=== PATIENT | female | born 1980 | race Caucasian/White ===

== ENCOUNTER 2017-12-17 16:57 | Emergency (ER) | payer MEDICARE ==
[2017-12-17 17:37] LABS: ALBUMIN/GLOBULIN RATIO 0.8 (1.0-2.2); BILIRUBIN,TOTAL 0.5 mg/dL (0.2-1.0); CREATININE 0.8 mg/dL (0.4-1.0); TOTAL PROTEIN 9.1 g/dL (6.7-8.2)
[2017-12-17 17:48] LABS: BASOPHILS % (AUTO) 0.3 %; EOSINOPHILS % (AUTO) 0.2 %; HGB - HEMOGLOBIN 11.8 g/dL (12.0-16.0); LYMPHOCYTES % (AUTO) 14.2 %; MEAN CORPUSCULAR HEMOGLOBIN 26.3 pg (27.0-31.0); MEAN CORPUSCULAR HGB CONC 33.1 g/dL (32.0-36.0); MEAN CORPUSCULAR VOLUME 79.6 fL (81.0-99.0); MEAN PLATELET VOLUME 9.4 fL (7.9-10.8); MONOCYTES # (AUTO) 0.6 10^3/uL (0.0-1.0); NEUTROPHILS # (AUTO) 5.7 10^3/uL (1.5-6.6); NEUTROPHILS % (AUTO) 77.3 %; PLT - PLATELET COUNT 263 10^3/uL (130-450); RED CELL DISTRIBUTION WIDTH 14.1 % (12.0-15.0); WHITE BLOOD COUNT 7.4 x10^3/uL (4.8-10.8)
[2017-12-17 18:04] LABS: BILIRUBIN,URINE NEGATIVE (NEGATIVE); GLUCOSE, URINE (UA) NEGATIVE (NEGATIVE); KETONES,URINE (UA) NEGATIVE (NEGATIVE); LEUKOCYTE ESTERASE, URINE SMALL (NEGATIVE); NITRITE,URINE NEGATIVE (NEGATIVE); OCCULT BLOOD,URINE LARGE (NEGATIVE); PH,URINE 5.5 PH (5.0-7.5); PROTEIN,URINE 30 mg/dL (NEGATIVE); UROBILINOGEN,URINE 0.2 (NORMAL) E.U./dL (NORMAL)
[2017-12-17 18:12] LABS: CLARITY,URINE HAZY (CLEAR); HCG UR QUAL NEGATIVE
[2017-12-17 18:22] LABS: BACTERIA,URINE Few /HPF (None Seen); RBC,URINE 0-5 /HPF (0-5); SQUAMOUS EPITHELIAL CELL,UR FEW Squamous (<= Few); WBC CLUMPS,URINE PRESENT
--- NOTE | 2017-12-17 18:38 | ED Physician Documentation ---
PD HPI ABD PAIN - Stated complaint Stated Complaint: CHILLS,SIDE PX - Chief complaint Chief Complaint: Abd Pain - History obtained from History obtained from: Patient - History of Present Illness Timing - onset: How many days ago (few) Timing - duration: Days (few) Timing - details: Gradual onset (had recent UTi symptoms and improved some but then feverish, nauseated and pain to flank areas since yesterday.) Quality: Cramping, Aching Location: Suprapubic Radiation: Left flank, Right flank Improved by: No: Eating, Position Worsened by: No: Eating, Position, Palpation Associated symptoms: Fever, Nausea, Dysuria, Loss of appetite. No: Vomiting, Diarrhea, Vaginal bleeding, Vaginal dc Similar symptoms before: Has not had sx before Recently seen: Not recently seen Review of Systems Constitutional: reports: Fever, Chills, Myalgias Nose: denies: Rhinorrhea / runny nose, Congestion Throat: denies: Sore throat Cardiac: denies: Chest pain / pressure, Palpitations Respiratory: denies: Dyspnea, Cough GI: reports: Abdominal Pain, Nausea. denies: Vomiting, Diarrhea : reports: Dysuria, Frequency. denies: Discharge Skin: denies: Rash PD PAST MEDICAL HISTORY - Past Medical History Cardiovascular: None Respiratory: None Endocrine/Autoimmune: None : None - Present Medications Home Medications: Ambulatory Orders Medication Instructions Recorded Confirmed Ondansetron HCl [Zofran] 4 mg PO Q6H PRN #15 tablet 12/17/17 Phenazopyridine [Pyridium] 200 mg PO TID PRN #15 tablet 12/17/17 Sulfamethox/Trimeth 800/160 1 each PO BID #14 tablet 12/17/17 [Bactrim Ds 800/160] - Allergies Allergies/Adverse Reactions: Allergies Allergy/AdvReac Type Severity Reaction Status Date / Time cephalexin Allergy Unknown Verified 12/17/17 18:52 hydrocodone Allergy Hives Verified 12/17/17 17:06 iodine Allergy Hives Verified 12/17/17 17:06 PD ED PE NORMAL - Vitals Vital signs reviewed: Yes - General General: Alert and oriented X 3, No acute distress, Well developed/nourished - HEENT HEENT: Pharynx benign - Neck Neck: Supple, no meningeal sign, No adenopathy - Cardiac Cardiac: RRR, No murmur - Respiratory Respiratory: Clear bilaterally - Abdomen Abdomen: Normal bowel sounds, Soft, Non distended, No organomegaly, Other (some tender suprapubic area) - Female Female : Deferred - Rectal Rectal: Deferred - Back Back: No: No CVA TTP (mild on right) - Derm Derm: Normal color, Warm and dry - Neuro Neuro: Alert and oriented X 3, No motor deficit, Normal speech Results - Vitals Vitals: Oxygen O2 Source Room air - Labs Labs: Microbiology 12/17/17 17:30 Urine Culture - Final Urine,Clean Catch Escherichia Coli Laboratory Tests 12/17/17 12/17/17 12/17/17 17:21 17:21 17:30 WBC 7.4 RBC 4.50 Hgb 11.8 L Hct 35.8 L MCV 79.6 L MCH 26.3 L MCHC 33.1 RDW 14.1 Plt Count 263 MPV 9.4 Neut # 5.7 Lymph # 1.0 L [place] # 0.6 Eos # 0.0 Baso # 0.0 Absolute Nucleated RBC 0.00 Nucleated RBC % 0.0 Sodium 134 L Potassium 2.9 L Chloride 100 L Carbon Dioxide 25 Anion Gap 9.0 BUN 9 Creatinine 0.8 Estimated GFR (MDRD) 81 L Glucose 113 H Calcium 9.0 Total Bilirubin 0.5 AST 26 ALT 38 Alkaline Phosphatase 92 Total Protein 9.1 H Albumin 4.0 Globulin 5.1 H Albumin/Globulin Ratio 0.8 L Lipase 12 L Urine Color YELLOW Urine Clarity HAZY Urine pH 5.5 Ur Specific [place] 1.020 Urine Protein 30 H Urine Glucose (UA) NEGATIVE Urine Ketones NEGATIVE Urine Occult Blood LARGE H Urine Nitrite NEGATIVE Urine Bilirubin NEGATIVE Urine Urobilinogen 0.2 (NORMAL) Ur Leukocyte Esterase SMALL H Urine RBC 0-5 Urine WBC >25 H Urine WBC Clumps PRESENT Ur Squamous Epith Cells FEW Squamous Urine Bacteria Few Ur Microscopic Review INDICATED Urine Culture Comments INDICATED Urine HCG, Qual NEGATIVE PD MEDICAL DECISION MAKING - ED course Complexity details: reviewed results, considered differential (she felt okay trying PO meds and oral challenge and deferring IV. ), d/w patient Departure - Departure Disposition: Home, Self Care Clinical Impression: Pyelonephritis Condition: Stable Record reviewed to determine appropriate education?: Yes Instructions: ED Kidney Infec Female Prescriptions: Ondansetron HCl [Zofran] 4 mg PO Q6H PRN #15 tablet PRN Reason: Nausea / Vomiting Phenazopyridine [Pyridium] 200 mg PO TID PRN #15 tablet PRN Reason: Pain Sulfamethox/Trimeth 800/160 [Bactrim Ds 800/160] 1 each PO BID #14 tablet Comments: Drink lots of fluids. Tylenol or ibuprofen if needed for pains. Bactrim antibiotic twice daily for 8 more days. Use ondansetron if needed for nausea. Phenazopyridine can be used if you have discomfort of urination. Recheck if not improving over the next couple of days return sooner if worse. Discharge Date/Time: 12/17/17 19:54
[2017-12-17] MEDS ORDERED: ONDANSETRON ODT 4 MG TABLET TL STA (18:50)
[2017-12-17] MEDS ORDERED: POTASSIUM BICARB 25 MEQ TABLET PO STA (18:52)
[2017-12-17] MEDS ORDERED: SULFAMETH/TRIMETH DS 800/160 MG TABLET PO STA (18:52)
[2017-12-17] MEDS ORDERED: traMADol 50 MG TABLET PO STA (18:52)
[2017-12-17] MEDS ORDERED: ACETAMINOPHEN 325 MG TABLET PO STA (18:53)
[2017-12-17] MEDS ORDERED: SULFAM/TRIM 800/160 Prepack 2 PO ONE (19:34)
[2017-12-17] MEDS ORDERED: ONDANSETRON ODT 4 MG Prepack 2 TL PRN (19:34)
[2017-12-17 19:45] VITALS: BP 128/94
== END 2017-12-17 19:54 | disposition home or self-care (01) ==
LOC: ED 16:57
DX: N12 Tubulo-interstitial nephritis, not specified as acute or chronic (principal)
CPT/HCPCS: 36415; 80053; 81001; 81025; 83690; 85025; 87086; 87181; 99283; A9270; Q0162; 81003

== ENCOUNTER 2018-05-03 11:48 | Emergency (ER) | payer MEDICARE ==
--- NOTE | 2018-05-03 13:02 | XRAY Report ---
Procedure Date: 05/03/2018 Accession Number: [id number] / [id number] Procedure: XR - Chest 1 View X-Ray CPT Code: 06164 FULL RESULT: EXAM: CHEST RADIOGRAPHY EXAM DATE: 05/03/2018 12:56 PM. CLINICAL HISTORY: Chest pain. COMPARISON: None. TECHNIQUE: 1 view. FINDINGS: Lungs/Pleura: No focal opacities evident. No pleural effusion. No pneumothorax. Mediastinum: Within exam limitations, the cardiomediastinal contour is normal. Other: None. IMPRESSION: Negative for an acute cardiopulmonary abnormality. RADIA
--- NOTE | 2018-05-03 13:07 | ED Physician Documentation ---
PD HPI CHEST PAIN - Stated complaint Stated Complaint: CP/HERNIA PX - Chief complaint Chief Complaint: Cardiac - History obtained from History obtained from: Patient - History of Present Illness Timing - onset: Today Timing - onset during: Light activity Timing - duration: Hours Timing - details: Abrupt onset, Still present Quality: Pressure, Sharp, Pain Location: Substernal Radiation: Abdominal. No: Jaw, Neck, Back Improved by: Rest Worsened by: Inspiration Associated symptoms: Diaphoresis. 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 The pain is non-radiating did cause some diaphoresis and is 8/10. She denies soa or light headedness. She has not had this previously. She has had a ventral hernia since a gallbladder removal several months ago. She has an 8 month old son that has been fussy lately with some constipation and she has been carrying him more than usual. She has been able to get the hernia to reduce but still has the chest pain. Review of Systems Constitutional: denies: Fever Eyes: denies: Decreased vision Ears: denies: Ear pain Nose: denies: Rhinorrhea / runny nose, Congestion Throat: denies: Sore throat Cardiac: reports: Chest pain / pressure. denies: Palpitations, Pedal edema, Calf pain Respiratory: denies: Dyspnea, Cough, Wheezing GI: reports: Abdominal Pain, Nausea. 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 : None Psych: None Musculoskeletal: None Derm: None - Past Surgical History Past Surgical History: Yes General: Cholecystectomy Ortho: Other /FITNESS CENTER ATTENDANT: section, Tubal ligation - Allergies Allergies/Adverse Reactions: Allergies Allergy/AdvReac Type Severity Reaction Status Date / Time cephalexin Allergy Unknown Verified 05/03/18 12:11 hydrocodone Allergy Hives Verified 05/03/18 12:11 iodine Allergy Hives Verified 05/03/18 12:11 - Social History Does the pt smoke?: No Smoking Status: Never smoker Does the pt drink ETOH?: No Does the pt have substance abuse?: No - Immunizations Immunizations are current?: Yes - POLST Patient has POLST: No PD ED PE NORMAL - Vitals Vital signs reviewed: Yes (hypertensive ) - General General: Alert and oriented X 3, No acute distress, Well developed/nourished - HEENT HEENT: Atraumatic, PERRL, EOMI - Neck Neck: Supple, no meningeal sign - Cardiac Cardiac: RRR, No murmur - Respiratory Respiratory: No respiratory distress, Clear bilaterally, Other (There is no chest wall tenderness to palpation ) - Abdomen Abdomen: Soft, Other (There is some mild epigastric tenderness and no defect is palpated for the ventral hernia. Pressure over the upper abdomen causes the pain the patient is having in her chest to be worse ) - Back Back: No CVA TTP, No spinal TTP - Derm Derm: Normal color, Warm and dry, No rash - Extremities Extremities: No deformity, No edema - Neuro Neuro: Alert and oriented X 3, ld teacher 2-12 intact, No motor deficit, No sensory deficit, Normal speech Eye Opening: Spontaneous Motor: Obeys Commands Verbal: Oriented GCS Score: 15 - Psych Psych: Normal mood, Normal affect Results - Vitals Vitals: Vital Signs - 24 hr 05/03/18 05/03/18 12:07 13:33 Temperature 36.3 C L Heart Rate 95 83 Respiratory 10 L 18 Rate Blood Pressure 137/93 H 112/85 H O2 Saturation 95 95 Oxygen O2 Source Room air - EKG (time done) 1202 Rate: Rate (enter#) (99) Rhythm: NSR Ischemia: Non specific changes Computer interpretation: Agree with computer - Labs Labs: Laboratory Tests 05/03/18 05/03/18 05/03/18 12:52 13:12 13:12 WBC 6.0 RBC 4.83 Hgb 13.0 Hct 38.7 MCV 80.3 L MCH 26.9 L MCHC 33.5 RDW 13.7 Plt Count 176 MPV 9.5 Neut # (Auto) 3.8 Lymph # (Auto) 1.7 [place] # (Auto) 0.4 Eos # (Auto) 0.1 Baso # (Auto) 0.0 Absolute Nucleated RBC 0.00 Nucleated RBC % 0.0 Sodium 136 Potassium 3.9 Chloride 106 Carbon Dioxide 23 Anion Gap 7.0 BUN 10 Creatinine 0.7 Estimated GFR (MDRD) 94 Glucose 112 H Calcium 8.6 Total Bilirubin 0.4 AST 22 ALT 33 Alkaline Phosphatase 84 Troponin I Total Protein 7.7 Albumin 4.1 Globulin 3.6 Albumin/Globulin Ratio 1.1 Lipase 26 Urine Color YELLOW Urine Clarity CLEAR Urine pH 7.0 Ur Specific [place] 1.020 Urine Protein NEGATIVE Urine Glucose (UA) NEGATIVE Urine Ketones NEGATIVE Urine Occult Blood NEGATIVE Urine Nitrite NEGATIVE Urine Bilirubin NEGATIVE Urine Urobilinogen 0.2 (NORMAL) Ur Leukocyte Esterase NEGATIVE Ur Microscopic Review NOT INDICATED Urine Culture Comments NOT INDICATED Urine HCG, Qual NEGATIVE 05/03/18 13:12 WBC RBC Hgb Hct MCV MCH MCHC RDW Plt Count MPV Neut # (Auto) Lymph # (Auto) [place] # (Auto) Eos # (Auto) Baso # (Auto) Absolute Nucleated RBC Nucleated RBC % Sodium Potassium Chloride Carbon Dioxide Anion Gap BUN Creatinine Estimated GFR (MDRD) Glucose Calcium Total Bilirubin AST ALT Alkaline Phosphatase Troponin I < 0.04 Total Protein Albumin Globulin Albumin/Globulin Ratio Lipase Urine Color Urine Clarity Urine pH Ur Specific [place] Urine Protein Urine Glucose (UA) Urine Ketones Urine Occult Blood Urine Nitrite Urine Bilirubin Urine Urobilinogen Ur Leukocyte Esterase Ur Microscopic Review Urine Culture Comments Urine HCG, Qual - Rads (name of study) 1 view chest Radiology: Prelim report reviewed (Impression: Negative for acute cardiopulmonary abnormality.), EMP read indepedently, See rad report PD MEDICAL DECISION MAKING - ED course Complexity details: reviewed results, re-evaluated patient, considered differential, d/w patient ED course: 38-year-old female with a ventral hernia did some Valsalva her hernia popped out and she developed chest pain associated with this she now has some pain that is worse if her upper abdomen is palpated and it does appear that her hernia is reasonably reduced. My concern was for reflux and the pain in her chest from esophageal irritation and she was administered a cocktail of viscous lidocaine and Mylanta with resolution of her pain. I discussed with the patient treatment of this to include an H2 michael. - Sepsis Event Vital Signs: Vital Signs - 24 hr 05/03/18 05/03/18 12:07 13:33 Temperature 36.3 C L Heart Rate 95 83 Respiratory 10 L 18 Rate Blood Pressure 137/93 H 112/85 H O2 Saturation 95 95 Oxygen O2 Source Room air Departure - Departure Disposition: 01 Home, Self Care Clinical Impression: Esophagitis Condition: Stable Instructions: ED GERD Follow-Up: [facility] [Provider Group] Comments: Today it appears that the pain you are having her chest is related to acid refluxing into your esophagus. I recommend that you begin a medication such as Pepcid AC or Tagamet.
[2018-05-03 13:14] LABS: BILIRUBIN,URINE NEGATIVE (NEGATIVE); GLUCOSE, URINE (UA) NEGATIVE (NEGATIVE); KETONES,URINE (UA) NEGATIVE (NEGATIVE); LEUKOCYTE ESTERASE, URINE NEGATIVE (NEGATIVE); NITRITE,URINE NEGATIVE (NEGATIVE); OCCULT BLOOD,URINE NEGATIVE (NEGATIVE); PROTEIN,URINE NEGATIVE (NEGATIVE); UROBILINOGEN,URINE 0.2 (NORMAL) E.U./dL (NORMAL)
[2018-05-03 13:15] LABS: CLARITY,URINE CLEAR (CLEAR); HCG UR QUAL NEGATIVE
[2018-05-03 13:17] LABS: BASOPHILS % (AUTO) 0.6 %; EOSINOPHILS # (AUTO) 0.1 10^3/uL (0.0-0.7); EOSINOPHILS % (AUTO) 1.4 %; LYMPHOCYTES # (AUTO) 1.7 10^3/uL (1.5-3.5); LYMPHOCYTES % (AUTO) 28.1 %; MEAN CORPUSCULAR HEMOGLOBIN 26.9 pg (27.0-31.0); MEAN CORPUSCULAR HGB CONC 33.5 g/dL (32.0-36.0); MEAN CORPUSCULAR VOLUME 80.3 fL (81.0-99.0); MEAN PLATELET VOLUME 9.5 fL (7.9-10.8); MONOCYTES # (AUTO) 0.4 10^3/uL (0.0-1.0); MONOCYTES % (AUTO) 5.8 %; NEUTROPHILS # (AUTO) 3.8 10^3/uL (1.5-6.6); NEUTROPHILS % (AUTO) 64.1 %; PLT - PLATELET COUNT 176 10^3/uL (130-450); RED BLOOD COUNT 4.83 10^6/uL (4.20-5.40); RED CELL DISTRIBUTION WIDTH 13.7 % (12.0-15.0)
[2018-05-03] MEDS ORDERED: LIDOCAINE VISCOUS 2% 15 ML UDC MM STA (13:26)
[2018-05-03] MEDS ORDERED: MAG HYDROX/AL HYDROX/SIMETH 30 ML UDC PO STA (13:26)
[2018-05-03 13:30] LABS: ALBUMIN 4.1 g/dL (3.2-5.5); ALBUMIN/GLOBULIN RATIO 1.1 (1.0-2.2); BILIRUBIN,TOTAL 0.4 mg/dL (0.2-1.0); CALCIUM 8.6 mg/dL (8.5-10.3); CREATININE 0.7 mg/dL (0.4-1.0); TOTAL PROTEIN 7.7 g/dL (6.7-8.2)
[2018-05-03 13:41] VITALS: BP 112/85
== END 2018-05-03 14:09 | disposition home or self-care (01) ==
LOC: ED 11:48
DX: K20.9 Esophagitis, unspecified (principal); K43.9 Ventral hernia without obstruction or gangrene
CPT/HCPCS: 36415; 71045; 80053; 81003; 81025; 83690; 84484; 85025; 93005; 99283; A9270; 81001; 87086

== ENCOUNTER 2018-12-17 10:35 | Emergency (ER) | payer OTHER, MEDICARE ==
[2018-12-17 10:57] VITALS: BP 140/101
--- NOTE | 2018-12-17 11:04 | ED Physician Documentation ---
PD HPI HEENT - Stated complaint Stated Complaint: EAR PAIN - Chief complaint Chief Complaint: Heent - History obtained from History obtained from: Patient - History of Present Illness Timing - onset: How many days ago (4) Timing - duration: Days (4) Timing - details: Gradual onset, Still present Location: Right ear, Left ear, Nose, Throat Improves: Medication Worsens: Swalllowing Associated symptoms: Fever, Congestion, Rhinorrhea, Swollen nodes, Headache, Cough Similar symptoms before: Diagnosis (strep) Recently seen: Not recently seen - Additional information Additional information: Previously well 38-year-old female has developed cough congestion and ear pain with muffled hearing. She has a son who is ill with cough congestion and otitis as well. Review of Systems Constitutional: reports: Fever, Chills, Myalgias, Fatigue Eyes: denies: Decreased vision Ears: reports: Loss of hearing, Ear pain Nose: reports: Rhinorrhea / runny nose, Congestion Throat: reports: Sore throat Cardiac: denies: Chest pain / pressure, Palpitations Respiratory: reports: Cough. 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 : None Psych: None Musculoskeletal: None Derm: None - Past Surgical History Past Surgical History: Yes General: Cholecystectomy Ortho: Other /MORNING BABYSITTER: section, Tubal ligation - Present Medications Home Medications: Ambulatory Orders Medication Instructions Recorded Confirmed Azithromycin [Zithromax] 250 mg PO DAILY #6 tablet 12/17/18 - Allergies Allergies/Adverse Reactions: Allergies Allergy/AdvReac Type Severity Reaction Status Date / Time cephalexin Allergy Unknown Verified 05/03/18 12:11 hydrocodone Allergy Hives Verified 05/03/18 12:11 iodine Allergy Hives Verified 05/03/18 12:11 - Social History Does the pt smoke?: No Smoking Status: Never smoker Does the pt drink ETOH?: No Does the pt have substance abuse?: No - Immunizations Immunizations are current?: Yes - POLST Patient has POLST: No PD ED PE NORMAL - Vitals Vital signs reviewed: Yes (hypertensive ) - General General: Alert and oriented X 3, No acute distress, Well developed/nourished - HEENT HEENT: Atraumatic, PERRL, EOMI, Other (no inflamation to the right TM and there is cerumen obscuring the left TM. There is erythema and swelling to the posterior pharynx. ) - Neck Neck: Supple, no meningeal sign, No bony TTP - Cardiac Cardiac: RRR, No murmur - Respiratory Respiratory: No respiratory distress, Clear bilaterally - Abdomen Abdomen: Soft, Non tender - Back Back: No CVA TTP, No spinal TTP - Derm Derm: Normal color, Warm and dry, No rash - Extremities Extremities: No deformity, No edema - Neuro Neuro: Alert and oriented X 3, manager physical 2-12 intact, No motor deficit, No sensory deficit, Normal speech Eye Opening: Spontaneous Motor: Obeys Commands Verbal: Oriented GCS Score: 15 - Psych Psych: Normal mood, Normal affect Results - Vitals Vitals: Vital Signs - 24 hr 12/17/18 10:37 Temperature 36.7 C Heart Rate 100 Respiratory 18 Rate Blood Pressure 140/101 H O2 Saturation 98 Oxygen O2 Source Room air - Labs Labs: Laboratory Tests 12/17/18 10:50 Group A Strep Rapid Negative PD MEDICAL DECISION MAKING - ED course Complexity details: reviewed results, re-evaluated patient, considered differential, d/w patient ED course: 38 y/o female with sore throat and muffled hearing is administered decadron 10mg PO Departure - Departure Disposition: 01 Home, Self Care Clinical Impression: URI with cough and congestion Condition: Stable Instructions: ED Upper Resp Infec Abx Tx Follow-Up: [facility] [Provider Group] Prescriptions: Azithromycin [Zithromax] 250 mg PO DAILY #6 tablet
[2018-12-17] MEDS ORDERED: DEXAMETHASONE 10 MG/ML VIAL PO STA (11:06)
[2018-12-17] MEDS ORDERED: CHERRY SYRUP 10 ML UDC PO ONE (11:14)
== END 2018-12-17 11:33 | disposition home or self-care (01) ==
LOC: ED 10:35
DX: J06.9 Acute upper respiratory infection, unspecified (principal)
CPT/HCPCS: 87070; 87430; 99283; A9270

== ENCOUNTER 2019-01-12 12:56 | Emergency (ER) | payer OTHER, MEDICARE ==
[2019-01-12] MEDS ORDERED: ACETAMINOPHEN 325 MG TABLET PO STA (13:21)
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
[2019-01-12 14:34] VITALS: BP 130/90
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
== END 2019-01-12 14:33 | disposition home or self-care (01) ==
LOC: ED 12:56
DX: S39.012A Strain of muscle, fascia and tendon of lower back, initial encounter (principal); S13.9XXA Sprain of joints and ligaments of unspecified parts of neck, initial encounter; V53.1XXA Passenger in pick-up truck or van injured in collision with car, pick-up truck or van in nontraffic accident, initial encounter; Y92.481 Parking lot as the place of occurrence of the external cause; R03.0 Elevated blood-pressure reading, without diagnosis of hypertension
CPT/HCPCS: 72040; 72070; 72100; 99283; A9270

== ENCOUNTER 2021-02-13 19:02 | Emergency (ER) | payer BC, MEDICARE, OTHER ==
[2021-02-13] MEDS ORDERED: methocarbamoL 500 MG TABLET PO STA (21:44)
[2021-02-13] MEDS ORDERED: IBUPROFEN 600 MG TABLET PO STA (21:44)
--- NOTE | 2021-02-13 21:46 | ED Physician Documentation ---
History of Present Illness - Stated complaint Stated Complaint: RT ARM PX/INJ - Chief complaint Chief Complaint: Trauma Ext - History obtained from History obtained from: Patient - Additonal information Additional information: 41-year-old woman with history of right elbow fracture remotely presents with right arm pain sudden in onset after she "tweaked it" while grasping a scooter today. Pain is moderate severity, worse with range of motion of the elbow, associated with muscle spasm and tingling sensation radiating from the elbow down to the fingers. Denies traumatic injury. Denies weakness. Review of Systems Skin: denies: Lesions, Abrasion (s) Musculoskeletal: reports: Extremity pain Neurologic: reports: Numbness. 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, Tubal ligation - Present Medications Home Medications: Ambulatory Orders Medication Instructions Recorded Confirmed No Known Home Medications 02/13/21 02/13/21 - Allergies Allergies/Adverse Reactions: Allergies Allergy/AdvReac Type Severity Reaction Status Date / Time cephalexin Allergy Unknown Verified 02/13/21 19:08 hydrocodone Allergy Hives Verified 02/13/21 19:08 iodine Allergy Hives Verified 02/13/21 19:08 - Social History Does the pt smoke?: No Smoking Status: Never smoker Does the pt drink ETOH?: No Does the pt have substance abuse?: No - Immunizations Immunizations are current?: Yes - POLST Patient has POLST: No PD ED PE NORMAL - Vitals Vital signs reviewed: Yes - General General: Alert and oriented X 3, No acute distress, Well developed/nourished - HEENT HEENT: Atraumatic, PERRL, EOMI - Derm Derm: Normal color, Warm and dry, Other (No laceration or abrasion) - Extremities Extremities: No deformity, Normal ROM s pain, Other (2+ BL radial pulses. discomfort with ROM of R elbow. no bony tenderness. 2+ BL strength) Results - Vitals Vitals: Vital Signs - 24 hr 02/13/21 19:09 Temperature 36.4 C L Heart Rate 112 H Respiratory 18 Rate Blood Pressure 146/97 H O2 Saturation 100 Oxygen O2 Source Room air PD MEDICAL DECISION MAKING - ED course ED course: 41-year-old woman presents with right arm strain after lifting a scooter, without apparent injury on x-ray. Advised conservative measures and strict return precautions were given. She will follow up with her primary doctor. Departure - Departure Disposition: 01 Home, Self Care Clinical Impression: Muscle strain Condition: Good Instructions: ED RICE Comments: You are seen in the emergency department for arm spasm. Wear the sling that we provided as needed. Return to the emergency department if you experience any new or worsening symptoms or have other concerns. Follow-up with your primary doctor. Take ibuprofen 600 mg every 6 hours as needed for pain on a full stomach.
--- NOTE | 2021-02-13 21:46 | XRAY Report ---
PROCEDURE: Humerus RT INDICATIONS: Trauma TECHNIQUE: 2 views of the humerus were acquired. COMPARISON: Concurrent study of the elbow. FINDINGS: Bones: No fractures or dislocations. No suspicious bony lesions. Soft tissues: No suspicious soft tissue calcifications. IMPRESSION: 1. No fracture or dislocation of the humerus. Reviewed by: Raghu Frankel MD on 02/13/2021 9:45 PM PDT Approved by: Raghu Frankel MD on 02/13/2021 9:45 PM PDT Station ID: [id number]
[2021-02-13 22:10] VITALS: BP 138/88
--- NOTE | 2021-02-13 22:11 | XRAY Report ---
PROCEDURE: Elbow 3 View RT INDICATIONS: Trauma TECHNIQUE: 3 views of the elbow were acquired. COMPARISON: Concurrent study of the humerus. FINDINGS: Bones: There is dysmorphic appearance of the radial head consistent with sequelae of prior trauma or surgery. No definite acute fracture or dislocation. Soft tissues: There is a small elbow joint effusion. No suspicious soft tissue calcifications. IMPRESSION: 1. Dysmorphic appearance of the radial head likely related to prior trauma or surgery. 2. No definite acute fracture or dislocation. 3. Small joint effusion. Reviewed by: Raghu Frankel MD on 02/13/2021 10:10 PM PDT Approved by: Raghu Frankel MD on 02/13/2021 10:10 PM PDT Station ID: [id number]
== END 2021-02-13 22:08 | disposition home or self-care (01) ==
LOC: ED 19:02
DX: S56.911A Strain of unspecified muscles, fascia and tendons at forearm level, right arm, initial encounter (principal); X50.0XXA Overexertion from strenuous movement or load, initial encounter; Y93.89 Activity, other specified
CPT/HCPCS: 73060; 73080; 99282; 99283; A9270